=== PATIENT | male | born 1970 | race Two or more races ===

== ENCOUNTER 2017-04-04 10:44 | Emergency (ER) | payer OTHER ==
[~2017-04-04] VITALS: Ht 167.6 cm; Wt 86.3 kg
[2017-04-04 11:54] LABS: HEMATOCRIT 51.2 % (39.2-51.8); HEMOGLOBIN 17.1 g/dL (13.7-18.0)
[2017-04-04] MEDS ORDERED: KETOROLAC 30 MG/1 ML IM ONE (12:00)
[2017-04-04 12:28] LABS: BLOOD UREA NITROGEN 12 mg/dL (7-18)
[2017-04-04] MEDS ORDERED: SODIUM CHLORIDE FLUSH 10ML SYR IVF ONE (12:30)
[2017-04-04 12:31] LABS: IS PT STATUS REG ER OR PRE ER? YES
[2017-04-04] MEDS ORDERED: KETOROLAC 30 MG/1 ML ONE (12:34)
[2017-04-04 12:46] VITALS: BP 132/84
== END 2017-04-04 13:15 | disposition home or self-care (01) ==
LOC: ED 12:26
DX: J70.5 Respiratory conditions due to smoke inhalation (principal)
CPT/HCPCS: 36415; 71010; 80048; 82040; 84484; 85025; 93005; 96372; 99285; J1885